=== PATIENT | male | born 1965 | race Hispanic/Latino ===

== ENCOUNTER 2023-07-30 06:57 | Day surgery (SDC) | payer MEDICARE ==
[2023-07-26 14:49] VITALS: BP 97/64; PULSE 64; RESP 18
[2023-07-26 14:54] LABS: BASOPHILS # (AUTO) 0.03 K/uL (0.00-0.20); BASOPHILS % (AUTO) 0.4 % (0.0-5.0); EOSINOPHILS # (AUTO) 0.14 K/uL (0.00-0.70); HEMATOCRIT 45.3 % (42-54); IMMATURE GRANULOCYTE ABSOLUTE 0.01 K/uL (0-1); LYMPHOCYTES # (AUTO) 1.9 K/uL (1.0-4.8); LYMPHOCYTES % (AUTO) 26.5 % (21.0-51.0); MEAN CORPUSCULAR HEMOGLOBIN 30.7 pg (27.0-33.0); MEAN CORPUSCULAR HGB CONC 34.7 g/dL (32.0-36.0); MEAN CORPUSCULAR VOLUME 88.6 fL (79-99); MONOCYTES # (AUTO) 0.7 K/uL (0.1-1.0); MONOCYTES % (AUTO) 10.4 % (3.0-13.0); NEUTROPHILS # (AUTO) 4.3 K/uL (1.8-7.7); NEUTROPHILS % (AUTO) 60.6 % (40.0-77.0); PLATELET COUNT (AUTO) 330 K/uL (130-400); RED BLOOD CELL COUNT(AUTO) 5.11 MIL/uL (4.50-6.20); RED CELL DISTRIBUTION WIDTH 13.2 % (11.0-15.5); WHITE BLOOD COUNT (AUTO) 7.1 K/uL (4.8-10.8)
[2023-07-26 15:07] LABS: CREATININE 1.1 mg/dL (0.5-1.5); POTASSIUM 4.3 mmol/L (3.5-5.1)
[2023-07-26 15:10] LABS: INR 1.01 (0.85-1.15); PROTHROMBIN TIME 11.7 SEC (9.6-11.6)
[2023-07-26 15:11] LABS: PARTIAL THROMBOPLASTIN TIME 31.6 SEC (26.3-35.5)
[2023-07-30] VITALS (12 sets, daily range): BP systolic 81–128; BP diastolic 56–80; PULSE 64–74; RESP 12–20
[~2023-07-30] VITALS: Ht 165.1 cm; Wt 68.9 kg
[~2023-07-30 06:57] MED LIST: AEC81 PO; ALBU6.7H14 IH; BUSP15TA3 PO; CLIN-141 PO; FURO80TA3 PO; IBUP-2070 PO; METF-526 PO; METO-408 PO; POTA10CA85 PO; SACU1TAB PO; SEMA3TAB4 PO; SPIR25TA6 PO; TRAM50TA4 PO; TRAZ-185 PO
[2023-07-30] MEDS ORDERED: 0.9%NACL 1000ML 1,000 ML IV ONE (07:22)
[2023-07-30] MEDS ORDERED: MIDAZOLAM HCL 1 MG/ML 2ML VIAL ONE (08:19)
[2023-07-30] MEDS ORDERED: FENTANYL CITRATE PF 50 MCG/1 ML 2ML VIAL ONE (08:19)
[2023-07-30] MEDS ORDERED: HEPARIN 10,000 UNIT/10ML (1,000 UNIT/ML) VIAL ONE (08:19)
[2023-07-30] MEDS ORDERED: LIDOCAINE HCL 400MG/20ML VIAL ONE (08:19)
[2023-07-30] MEDS ORDERED: IOHEXOL 350 MG/ML 100ML INFUS..BTL IV ONE (08:19)
[2023-07-30] MEDS ORDERED: DEXTROSE 50%-WATER 50 ML DISP.SYRIN IV PRN (09:30)
[2023-07-30] MEDS ORDERED: GLUCAGON 1MG KIT 1 MG ML IM PRN (09:30)
== END 2023-07-30 14:00 | disposition home or self-care (01) ==
LOC: DAH 06:57
PROVIDERS: ATTEND Internal Medicine Cardiovascular Disease
DX: I25.10 Atherosclerotic heart disease of native coronary artery without angina pectoris (principal); I42.8 Other cardiomyopathies; I50.42 Chronic combined systolic (congestive) and diastolic (congestive) heart failure; E11.51 Type 2 diabetes mellitus with diabetic peripheral angiopathy without gangrene; I44.7 Left bundle-branch block, unspecified; F41.9 Anxiety disorder, unspecified; F17.210 Nicotine dependence, cigarettes, uncomplicated; E78.5 Hyperlipidemia, unspecified; Z79.82 Long term (current) use of aspirin; Z79.01 Long term (current) use of anticoagulants; Z79.899 Other long term (current) drug therapy; Z82.49 Family history of ischemic heart disease and other diseases of the circulatory system; Z72.89 Other problems related to lifestyle; Z98.890 Other specified postprocedural states
CPT/HCPCS: 80048; 85025; 85610; 85730; 36415; 71045; 93005; 93458; 82948 ×2; C1894 ×2; C1760; J3010; J3490; J7030; J2250; J1644; Q9967; A4215; A4222; A4221; A4663; A4216; A4606; Q9965; A4223 ×3; 99156; 99157